=== PATIENT | male | born 1980 | race Caucasian/White ===

== ENCOUNTER 2018-06-04 08:25 | Emergency (ER) | payer OTHER ==
[2018-06-04] MEDS ORDERED: NS 1,000 ML IV ONE (08:44)
--- NOTE | 2018-06-04 08:51 | EDPHY ---
H & P Time Seen by Provider: 06/04/18 08:37 HPI/ROS: HPI Left-sided facial numbness. 37-year-old male by ambulance with family. The patient reports that he woke up uneventfully this morning. He reports that he went downstairs as usual and was getting a cup of coffee. He reports that he had a sensation of a sudden onset head rash and felt lightheaded. This was then followed by a sensation of numbness to the left side of his face including the left forehead, left maxilla and left jaw and the left side of his tongue. He went up to the bed room to tell his this. He states that because of the numbness of the left side of his tongue he was unable to communicate and verbalize affectively. He reports that he laid down on the bed and the symptoms resolved quickly, within about 2 min. He reports that they were then deciding whether not to call the ambulance. He was feeling much better but then a short time later this symptoms started returning. He then called an ambulance and was brought to the emergency department. He reports that the symptoms again resolved. At this time he has no complaints and denies any symptoms or abnormal sensations. His father has a history of a stroke. ROS: Constitutional: No fever, no chills. As above. Eyes: No discharge. No changes in vision. ENT: No sore throat. No nasal congestion or rhinorrhea. Respiratory: No cough. No shortness of breath. Cardiac: No chest pain, no palpitations. Gastrointestinal: No abdominal pain, no vomiting, no diarrhea. Genitourinary: No hematuria. No dysuria or increased frequency with urination. Musculoskeletal: No back pain. No neck pain. No myalgias or arthralgias. Skin: No rashes. Neurological: No headache. As above. Past medical history: No significant past medical history. He is not on any prescription medications. Social history: Here with family and . No alcohol. No IV drugs or street drugs. He does not smoke. Physical Exam: General Appearance: Alert, no distress. This patient is responding to questions appropriately and in full sentences. This patient appears well- hydrated and well-nourished. Eyes: Pupils equal and round no pallor or injection. No lid edema, erythema or injection. No nystagmus. No photophobia. ENT, Mouth: Mucous membranes are moist. The pharyngeal tissues are unremarkable. No edema or swelling. No asymmetry suggestive of abscess. No erythema or exudates. No tongue lacerations or abrasions. Sensory and motor function of the tongue are normal. Respiratory: There are no retractions, lungs are clear to auscultation with good air movement bilaterally. Cardiovascular: Regular rate and rhythm. No murmur. Gastrointestinal: Abdomen is soft and nontender, no masses, bowel sounds normal. No focal tenderness at McBurney's point. No Galloway sign. Neurological: Motor sensory function is grossly intact. Cranial nerves are normal. Cerebellar function is normal. Gait is normal. Skin: Warm and dry, no rashes. Musculoskeletal: Neck is supple and nontender. No pain on flexion of the neck. Extremities are symmetrical. All joints range without pain or impingement. Psychiatric: No agitation. No depression. Database: EKG: EKG time is 8:50 a.m.; EKG shows a narrow complex normal sinus rhythm with a ventricular rate of 64. Probable early repolarization. The CT, QRS, QT intervals are within normal limits. There are no ST-T wave changes indicative of ischemic or injury pattern. No evidence of right heart strain. Interpreted by me. Imaging: MRI brain without contrast: Negative. Results were discussed with staff radiologist Dr. Low Deleon. Carotid Doppler ultrasound: Essentially negative study: No clinically significant stenosis involving the carotid arteries and the vertebral arteries. Results were discussed with staff radiologist Dr. Low Deleon. Procedures: Emergency department course: Triage vital signs reviewed. The differential diagnosis on the patient includes CVA, partial complex seizure, atypical migraine syndrome. IV placed. The patient was placed on a monitor. He was started on IV normal saline with 500 cc to 1 L to be given over the next hour. EKG obtained and reviewed by myself. Blood work will be obtained as well as an MRI of the brain diffusion- weighted without contrast and carotid artery Doppler ultrasounds. This was discussed with the patient and family. He consents. 10:55 a.m., the patient's neurologic exam has remained nonfocal since he has been in the emergency department. He has had no further complaints. Results of blood work and imaging discussed with him and his and family. Neurology paged. 11:05 a.m., spoke with on-call neurologist, Dr. Pj Ledezma. Case discussed in detail with him. He recommends that the patient be discharged, follow-up in his office and be started on aspirin 81 mg daily. This plan was discussed with the patient and family. He feels comfortable going home at this time. Repeat neurologic Assessment is nonfocal. He understands his follow-up. Return to emergency department precautions were reviewed with him. All of his questions were answered. He was discharged in good condition with his and family. Differential Diagnosis: The differential diagnosis on this patient includes but is not limited to CVA, partial complex seizure, atypical migraine syndrome, anxiety reaction, Ruth's palsy. This represents a partial list of diagnoses considered. These considerations are based on history, physical exam, past history, reassessment and diagnostic testing. Smoking Status: Never smoked Constitutional: Initial Vital Signs Temperature (C) 36.8 C 06/04/18 08:27 Heart Rate 64 06/04/18 08:27 Respiratory Rate 16 06/04/18 08:27 Blood Pressure 122/70 H 06/04/18 08:27 O2 Sat (%) 93 06/04/18 08:27 O2 Delivery Mode Room Air Allergies/Adverse Reactions: No Known Allergies Allergy (Unverified 06/04/18 08:31) Home Medications: Medication Instructions Recorded Ibuprofen 06/04/18 Medical Decision Making - Diagnostics Imaging Results: Imaging Impressions Brain MRI 06/04/18 08:45 Impression: Normal MRI of the brain without contrast. Findings and recommendations discussed with Emergency Department physician, Sherman Siddiqui MD at 10:45 a.m., 06/04/2018. Final report concurs with initial preliminary interpretation. Cosigned: Adair Ramires M.D. Carotid Doppler Study 06/04/18 08:46 Impression: 1. No evidence of flow-limiting carotid stenosis. 2. No carotid atherosclerotic disease or stenosis. 3. Bilateral vertebral arteries are patent with antegrade flow. Measurement of carotid stenosis is based on velocity parameters that correlate the residual internal carotid diameter with [place] Symptomatic Carotid Endarterectomy Trial (NASCET) based stenosis levels. Findings and recommendations discussed with Emergency Department physician, Sherman Siddiqui MD at 10:19 hour, 06/04/2018. Final report concurs with initial preliminary interpretation. - Data Points Laboratory Results: Laboratory Results 06/04/18 08:35 06/04/18 08:35 06/04/18 18 08:35 08:35 WBC 5.98 10^3/uL 10^3/uL (3.80-9.50) RBC 5.85 10^6/uL 10^6/uL (4.40-6.38) Hgb 17.3 g/dL g/dL (13.7-17.5) Hct 50.6 % % (40.0-51.0) MCV 86.5 fL fL (81.5-99.8) MCH 29.6 pg pg (27.9-34.1) MCHC 34.2 g/dL g/dL (32.4-36.7) RDW 12.3 % % (11.5-15.2) Plt Count 204 10^3/uL 10^3/uL (150-400) MPV 9.9 fL fL (8.7-11.7) Neut % (Auto) 54.3 % % (39.3-74.2) Lymph % (Auto) 36.0 % % (15.0-45.0) [place] % (Auto) 7.5 % % (4.5-13.0) Eos % (Auto) 1.3 % % (0.6-7.6) Baso % (Auto) 0.7 % % (0.3-1.7) Nucleat RBC Rel Count 0.0 % % (0.0-0.2) Absolute Neuts (auto) 3.25 10^3/uL 10^3/uL (1.70-6.50) Absolute Lymphs (auto) 2.15 10^3/uL 10^3/uL (1.00-3.00) Absolute Monos (auto) 0.45 10^3/uL 10^3/uL (0.30-0.80) Absolute Eos (auto) 0.08 10^3/uL 10^3/uL (0.03-0.40) Absolute Basos (auto) 0.04 10^3/uL 10^3/uL (0.02-0.10) Absolute Nucleated RBC 0.00 10^3/uL 10^3/uL (0-0.01) Immature Gran % 0.2 % % (0.0-1.1) Immature Gran # 0.01 10^3/uL 10^3/uL (0.00-0.10) Sodium 140 mEq/L mEq/L (135-145) Potassium 4.5 mEq/L mEq/L (3.3-5.0) Chloride 104 mEq/L mEq/L (97-110) Carbon Dioxide 25 mEq/l mEq/l (22-31) Anion Gap 11 mEq/L mEq/L (8-16) BUN 20 mg/dL mg/dL (7-23) Creatinine 1.0 mg/dL mg/dL (0.7-1.3) Estimated GFR > 60 Glucose 92 mg/dL mg/dL (70-100) Calcium 9.8 mg/dL mg/dL (8.5-10.4) Medications Given: Discontinued Medications Aspirin (Aspirin) 81 mg PO EDNOW ONE Stop: 06/04/18 11:06 Last Admin: 06/04/18 11:10 Dose: 81 mg Sodium Chloride (Ns) 1,000 mls @ 0 mls/hr IV ONCE ONE; Wide Open PRN Reason: Protocol Stop: 06/04/18 08:45 Last Admin: 06/04/18 08:57 Dose: 1,000 mls Departure - Departure Disposition: Home, Routine, Self-Care Clinical Impression: Left facial numbness Condition: Good Instructions: Paresthesia (ED) Additional Instructions: Read and follow provided instructions. Take 81 mg of chewed aspirin daily. Follow-up with Neurology, Dr. Pj Ledezma or 1 of his partners, in the next few days for re-evaluation. Call his office this morning for appointment time. I spoke with him personally. Return to the emergency department for return of symptoms or other serious concerns. Referrals: Pj Ledezma MD [Medical Doctor] - As per Instructions
[2018-06-04 08:54] LABS: PLATELET COUNT 204 10^3/uL (150-400)
[2018-06-04 10:35] VITALS: BP 110/58
[2018-06-04] MEDS ORDERED: ASPIRIN 81 MG CHEWABLE TAB PO ONE (11:05)
--- NOTE | 2018-06-04 12:18 | CPEKG ---
Test Reason : OPEN Blood Pressure : / mmHG Vent. Rate : 064 BPM Atrial Rate : 062 BPM P-R Int : 174 ms QRS Dur : 100 ms QT Int : 389 ms P-R-T Axes : 000 006 037 degrees QTc Int : [address] elev, probable normal early repol pattern Confirmed by Sherman Siddiqui ([id number]) on 06/04/2018 12:17:54 PM Referred By: Confirmed By:Sherman Siddiqui
== END 2018-06-04 11:19 | disposition home or self-care (01) ==
LOC: EDUNIT#
DX: R20.0 Anesthesia of skin (principal); E86.9 Volume depletion, unspecified

== ENCOUNTER → 2018-06-05 | Outpatient (CLI) | payer OTHER ==
[~2018-06-05] MED LIST: IOPAMIDOL (ISOVUE 370) 100 ML BTL IV ONE
== END ==
LOC: FIMAGING 17:17
PROVIDERS: ATTEND Psychiatry & Neurology Neurology
DX: R20.0 Anesthesia of skin (principal); R47.81 Slurred speech
CPT/HCPCS: Q9967

== ENCOUNTER → 2018-06-12 | Outpatient (CLI) | payer OTHER | LOC: FIMAGING 10:59 | PROVIDERS: ATTEND Psychiatry & Neurology Neurology | DX: R20.0 Anesthesia of skin (principal); G45.9 Transient cerebral ischemic attack, unspecified ==

== ENCOUNTER 2018-07-01 12:07 | Day surgery (SDC) | payer OTHER ==
[2018-07-01] MEDS ORDERED: BENZOCAINE UNIT DOSE SPRAY HURRICAINE MM ONE (12:10)
[2018-07-01] MEDS ORDERED: fentaNYL 100 MCG/2 ML INJ IVP ONE (12:10)
[2018-07-01] MEDS ORDERED: MIDAZOLAM 2 MG/2 ML VIAL IVP ONE (12:10)
[2018-07-01] MEDS ORDERED: NS 500 ML IV ONE (12:10)
[2018-07-01] MEDS ORDERED: ATROPINE SULFATE 1 MG/10 ML SYR ONE (13:27)
--- NOTE | 2018-07-01 13:36 | PDANEPAE ---
ANE History of Present Illness ALLEN for TIA eval ANE Past Medical History - Pulmonary History Hx Oxygen in Use at Home: No Hx Sleep Apnea: No - Endocrine History Hx Diabetes: No - Chronic Pain History Chronic Pain: No (recent low back pain, not chronic) ANE Review of Systems Review of Systems: - Exercise capacity Exercise capacity: >=4 METS ANE Patient History - Allergies Allergies/Adverse Reactions: No Known Allergies Allergy (Unverified 06/04/18 08:31) - Home Medications Home medications: home medication list seen and reviewed Home Medications: Ibuprofen 06/04/18 [Last Taken Unknown] - NPO status NPO Status: no food or drink >8 hours - Anes Hx Anes Hx: no prior problems - Smoking Hx Smoking Status: Never smoked - Alcohol Use Alcohol Use: Rarely - Family Anes Hx Family Anes Hx: none ANE Labs/Vital Signs - Vital Signs Height: 185.42 cm Weight: 90.718 kg ANE Physical Exam - Airway Neck exam: FROM Mallampati Score: Class 1 Mouth exam: normal dental/mouth exam - Pulmonary Pulmonary: no respiratory distress - Cardiovascular Cardiovascular: regular rate and rhythym - ASA Status ASA Status: I ANE Anesthesia Plan Anesthesia Plan: GA with mask Total IV Anesthesia: Yes
[2018-07-01] MEDS ORDERED: PROPOFOL 200 MG/20 ML VIAL ONE (13:39)
[2018-07-01] MEDS ORDERED: LIDOCAINE 2% 100 MG/5 ML SYR ONE (13:39)
[2018-07-01] MEDS ORDERED: SUCCINYLCHOLINE CHLORIDE 200 MG/10 ML SYR IVP ONE (13:39)
--- NOTE | 2018-07-01 14:00 | PDHPUP ---
History & Physical Update H&P update statement: This history and physical update is based on an assessment of the patient which was completed after admission or registration (within 24 hours), but prior to the surgery/procedure. H&P update: H&P reviewed & patient examined, no change in patient's condition since H&P completed (Reviewed Dr. Haji's clinic note dated 06/12/2018)
[2018-07-01] MEDS ORDERED: NALOXONE HCL 0.4 MG/ML INJ IVP PRN (14:37)
--- NOTE | 2018-07-01 14:38 | POSTANESTH ---
Post Anesthetic Evaluation Cardiovascular Status: Normal, Stable Respiratory Status: Normal, Stable Level of Consciousness/Mental Status: Can Participate in Eval Pain Control: Adequate, Prn Tx Ordered Nausea/Vomiting Control: Adequate, Prn Tx Ordered Complications Possibly Related to Anesthesia: None Noted
--- NOTE | 2018-07-01 16:28 | ECHO ---
[email or web address] [address] [address] Main: [phone] Fax: Transesophageal Echocardiography Name: NARINDER HIGHTOWER MR#: [id number] Study Date: 07/01/2018 Study Time: 01:44 PM Date of : 1980 Age: 37 year(s) Height: ( ) Weight: ( ) BSA: Gender: Male Examination: ALLEN Indication: tia Image Quality: Contrast: Requested by: Kemar Gould Heart Rate: Rhythm: BP: / Procedure Staff Cop Winder: Sirisha Ji [facility] Reading Physician: Johana Petit MD Requesting Provider: Kevin Haji ALLEN Exam Details Conclusions: Normal size left ventricle. Normal global systolic LV function. Normal size right ventricle. Normal RV function. The left atrium is normal in size. No thrombus is noted in the left atrium. Left to right color flow noted across the interatrial septum consistent with small secundum atrial defect. QP/QS .8 No VLADIMIR thrombus. Mild mitral valve regurgitation is present. Measurements: Chambers Valvular Assessment AV/MV Valvular Assessment TV/PV Normal Normal Normal Name Value Range Name Value Range Name Value Range LVOTd 2.3 cm 2.3 cm mm Qp/Qs: 0.80 ( - ) Additional Measurements: Chambers Name Value RVOT1: 2.3 cm RVOT SV D: 35 ml RVOT VTI: 8.54 cm Patient: NARINDER HIGHTOWER Study Date: 07/01/2018 Page 1 of 2 01:44 PM Findings: Left Ventricle: Normal size left ventricle. Normal global systolic LV function. Right Ventricle: Normal size right ventricle. Normal RV function. Left Atrium: The left atrium is normal in size. No thrombus is noted in the left atrium. Left to right color flow noted across the interatrial septum consistent with small secundum atrial defect. QP/QS .8 Left Atrial Appendage: No thrombus in left appendage. No VLADIMIR thrombus. Right Atrium: The right atrium is normal in size. Mitral Valve: The mitral valve is normal in appearance and function. Mild mitral valve regurgitation is present. Aortic Valve: The aortic valve is normal in appearance and function. The aortic valve is tri-leaflet. There is no aortic valve regurgitation. Tricuspid Valve: The tricuspid valve is normal in appearance and function. Trivial tricuspid valve regurgitation. Pulmonic Valve: The pulmonic valve is normal in appearance. Trivial pulmonic valve regurgitation. Aorta: Normal size. Pericardium: No pericardial effusion. l1n (No Signature Object) Patient: NARINDER HIGHTOWER Study Date: 07/01/2018 Page 2 of 2 01:44 PM [id number]
== END 2018-07-01 17:41 | disposition home or self-care (01) ==
LOC: FCATH 12:07
PROVIDERS: ATTEND Internal Medicine Cardiovascular Disease
PROC: B246ZZ4 Ultrasonography of Right and Left Heart, Transesophageal (ICD-10-PCS; principal; 2018-07-01)
DX: Q21.1 Atrial septal defect (principal); Z83.2 Family history of diseases of the blood and blood-forming organs and certain disorders involving the immune mechanism; Z86.73 Personal history of transient ischemic attack (TIA), and cerebral infarction without residual deficits
CPT/HCPCS: J0330; J0461; J2001; J2704

== ENCOUNTER 2018-08-06 05:59 | Observation (INO) | payer OTHER ==
[2018-08-06] MEDS ORDERED: diphenhydrAMINE 25 MG CAP PO ONE (06:08)
[2018-08-06] MEDS ORDERED: DIAZEPAM 5 MG TAB PO ONE (06:08)
[2018-08-06] MEDS ORDERED: ASPIRIN EC 325 MG TAB PO ONE (06:08)
[2018-08-06] MEDS ORDERED: NS 1,000 ML IV ONE (06:08)
[2018-08-06] MEDS ORDERED: FAMOTIDINE 20 MG TAB PO ONE (06:08)
--- NOTE | 2018-08-06 06:43 | PDHPUP ---
History & Physical Update H&P update statement: This history and physical update is based on an assessment of the patient which was completed after admission or registration (within 24 hours), but prior to the surgery/procedure. H&P update: H&P reviewed & patient examined, no change in patient's condition since H&P completed
--- NOTE | 2018-08-06 06:43 | PDPROPOC ---
Sedation Plan of Care Sedation Plan of Care: mental status noted, patient educated of risks, benefits , alternatives, patient can tolerate sedation ASA Classification: ASA 2 Planned drugs: other Mallampati Score: Class 2 Mallampati Reference Image: Patient passed 3-3-2 rule?: Yes
[2018-08-06] MEDS ORDERED: ceFAZolin 2 GM/DEXTROSE 100 ML IV ONE (07:00)
--- NOTE | 2018-08-06 07:12 | PDANEPAE ---
ANE History of Present Illness ASD s/f ASD closure ANE Past Medical History - Pulmonary History Hx Oxygen in Use at Home: No Hx Sleep Apnea: No - Endocrine History Hx Diabetes: No - Neurological & Psychiatric Hx Hx Neurological and Psychiatric Disorders: Yes Neurological / Psychiatric History Comment: TIA from ASD - Chronic Pain History Chronic Pain: No (recent low back pain, not chronic) ANE Review of Systems Review of Systems: - Exercise capacity Exercise capacity: >=4 METS ANE Patient History - Allergies Allergies/Adverse Reactions: No Known Allergies Allergy (Unverified 06/04/18 08:31) - Home Medications Home medications: home medication list seen and reviewed Home Medications: Aspirin [Aspirin 81mg (*)] 81 mg PO DAILY 07/31/18 [Last Taken Unknown] Herbals/Supplements -Info Only 1 ea PO DAILY 07/31/18 [Last Taken Unknown] Ibuprofen [Motrin (*)] 400 mg PO DAILY PRN 07/31/18 [Last Taken Unknown] Multivitamins [Multivitamin (*)] 1 each PO DAILY 07/31/18 [Last Taken Unknown] Howard-3 Fatty Acids [Fish Oil 1000 mg (*)] 1,000 mg PO DAILY 07/31/18 [Last Taken Unknown] - NPO status NPO Status: no food or drink >8 hours - Anes Hx Anes Hx: no prior problems - Smoking Hx Smoking Status: Never smoked - Alcohol Use Alcohol Use: Occasionally - Family Anes Hx Family Anes Hx: none ANE Labs/Vital Signs - Labs - CBC WBC: 08/05/18 okay - Labs - BMP Sodium: 08/05/18 okay - Vital Signs Height: 185.42 cm Weight: 97.522 kg ANE Physical Exam - Airway Neck exam: FROM Mallampati Score: Class 2 Mouth exam: normal dental/mouth exam - Pulmonary Pulmonary: no respiratory distress - Cardiovascular Cardiovascular: regular rate and rhythym - ASA Status ASA Status: II ANE Anesthesia Plan Anesthesia Plan: general endotracheal anesthesia
[2018-08-06] MEDS ORDERED: PROPOFOL/EMULSION 500 MG/50 ML BOTTLE IV ONE (07:14)
[2018-08-06] MEDS ORDERED: fentaNYL 100 MCG/2 ML INJ ONE (07:14)
[2018-08-06] MEDS ORDERED: REMIFENTANIL HCL 1 MG VIAL ONE (07:14)
[2018-08-06] MEDS ORDERED: ONDANSETRON 4 MG/2 ML VIAL ONE (07:14)
[2018-08-06] MEDS ORDERED: DEXAMETHASONE 4 MG/ML VIAL ONE ×2 (07:14)
[2018-08-06] MEDS ORDERED: LIDOCAINE 2% 100 MG/5 ML SYR ONE (07:14)
[2018-08-06] MEDS ORDERED: LIDOCAINE HCL 160 MG/4 ML LTA KIT TP ONE (07:17)
[2018-08-06] MEDS ORDERED: IOPAMIDOL (ISOVUE-370) 150 ML BTL IV ONE (07:29)
[2018-08-06] MEDS ORDERED: HEPARIN 10,000 UNIT/10 ML MDV (1,000 UNIT/ML) ONE ×2 (07:40→07:54)
[2018-08-06] MEDS ORDERED: ONDANSETRON 4 MG/2 ML VIAL IVP PRN (08:38)
[2018-08-06] MEDS ORDERED: LORazepam 2 MG/ML INJ IVP PRN (08:38)
[2018-08-06] MEDS ORDERED: NITROGLYCERIN 0.4 MG BTL SL PRN (08:38)
[2018-08-06] MEDS ORDERED: OXYCODONE/APAP 5/325 TAB PO PRN (08:38)
[2018-08-06] MEDS ORDERED: ATROPINE SULFATE 1 MG/10 ML SYR IVP PRN (08:38)
[2018-08-06] MEDS ORDERED: TEMAZEPAM 15 MG CAP PO PRN (08:38)
[2018-08-06] MEDS ORDERED: HYDROCODONE/APAP 5/325 TAB PO PRN (08:38)
--- NOTE | 2018-08-06 09:26 | CPIP ---
DATE OF PROCEDURE: 08/06/2018 INDICATIONS FOR PROCEDURE: Cryptogenic stroke. PROCEDURE: 1. 9-Mongolian sheath right common vein. 2. Repair of patent foramen ovale with a 25 mm Amplatzer device. HISTORY: Briefly, this is a 37-year-old male with history of cryptogenic stroke with known PFO on T EE. Patient had no evidence of atrial fibrillation on a 3 day monitoring as an outpatient. Given thes e findings, the patient consented for PFO closure. DESCRIPTION OF PROCEDURE: After informed consent, the patient was brought to [facility] where the patient w as selectively intubated. ALLEN performed by Dr. Johana Petit. The patient was administered 2 g of Ancef IV prior to the case. An 8-Mongolian sheath placed in the right common vein, which was upsized to a 9-Mongolian sheath. PFO was s uccessfully crossed with a multipurpose catheter and wire after a total of 12,000 heparin was given. PFO was noted on ALLEN with spontaneous left to right color shunting. PFO was closed successfully with a 25 mm Amplatzer device. Post-deployment, there was a bubble study performed, which showed no transm ission of bubbles from the right to left or left to right. Sheath was pulled back. Closed with a purs estring suture. The patient tolerated the procedure well with no complications. IMPRESSION: Successful closure of patent foramen ovale with 25 mm device physical closure of PFO 25 mm PFO device. PLAN: The patient will have his sutures discontinued in 24 hours. The patient will be admitted to in patient status, discharge within 24 hours if clinically stable. /[id number]/MODL
--- NOTE | 2018-08-06 09:37 | ECHO ---
[email or web address] [address] [address] Main: [phone] Fax: Transesophageal Echocardiography Name: NARINDER HIGHTOWER MR#: [id number] Study Date: 08/06/2018 Study Time: 07:36 AM Date of : 1980 Age: 37 year(s) Height: ( ) Weight: ( ) BSA: Gender: Male Examination: ALLEN Indication: ASD Closure Image Quality: Adequate Contrast: Requested by: Kevin Haji Heart Rate: Rhythm: BP: / Procedure Staff Social Science Teacher: Ashwini Nava RDCS Reading Physician: Johana Petit MD Requesting Provider: Kevin Haji ALLEN Exam Details Conclusions: Normal size left ventricle. Normal global systolic LV function. Prior to ASD closure procedure, the patient has a small secundum ASD. The QpQs from the prior ALLEN was .8. Post ASD device deployment, a negative bubble study was performed. There is no visible residual shunting. The device is well seated. . Mild mitral valve regurgitation is present. The aortic valve is tri-leaflet. There is no significant aortic valve regurgitation. Mild tricuspid regurgitation is present. The pulmonic valve is normal in appearance and function. Normal. No pericardial effusion. Measurements: Chambers Valvular Assessment AV/MV Valvular Assessment TV/PV Normal Normal Normal Name Value Range Name Value Range Name Value Range Additional Measurements: Findings: Left Ventricle: Normal size left ventricle. Normal global systolic LV function. No regional wall motion abnormality. Patient: NARINDER HIGHTOWER Study Date: 08/06/2018 Page 1 of 2 07:36 AM Left Atrium: Prior to ASD closure procedure, the patient has a small secundum ASD. The QpQs from the prior ALLEN was .8. Post ASD device deployment, a negative bubble study was performed. There is no visible residual shunting. The device is well seated. . Mitral Valve: The mitral valve is normal in appearance and function. Mild mitral valve regurgitation is present. No mitral stenosis is present. Aortic Valve: The aortic valve is tri-leaflet. There is no significant aortic valve regurgitation. Tricuspid Valve: The tricuspid valve is normal in appearance and function. Mild tricuspid regurgitation is present. Pulmonic Valve: The pulmonic valve is normal in appearance and function. Aorta: Normal. Pericardium: No pericardial effusion. l1n (No Signature Object) Patient: NARINDER HIGHTOWER Study Date: 08/06/2018 Page 2 of 2 07:36 AM [id number]
[2018-08-06] MEDS ORDERED: ACETAMINOPHEN 325 MG TAB PO PRN (13:16)
[2018-08-06] MEDS: ACETAMINOPHEN 325 MG TAB PO PRN ×2 (13:27→17:39)
--- NOTE | 2018-08-06 13:29 | PDMN ---
Medical Necessity Medical necessity: Pt meets inpt criteria per MD order and [facility] S-282, Cardiac Septal Defect: Atrial, Transcatheter Closure. 37 y/o w/hx cryptogenic stroke and known PFO on ALLEN, admitted for closure of patent foramen ovale, PCU post-op monitoring/care.
[2018-08-07 04:15] LABS: PLATELET COUNT 176 10^3/uL (150-400)
[2018-08-07] MEDS: ACETAMINOPHEN 325 MG TAB PO PRN (04:18)
--- NOTE | 2018-08-07 06:51 | PDCARPN ---
Cardiology Progress Note Chief Complaint: s/p PFO closure Assessment/Plan: Assessment: s/p PFO closure Plan: 08/07/18 06:50 doing well d/c suture in groin d/c home f/u next week Subjective: doing well Reviewed/Discussed With: multidisciplinary team Time Spent with Patient: greater than 25 minutes Time Spent with Patient: Greater than 25 minutes spent on this patients care, greater than 50% of time spent counseling, educating, and coordinating care regarding the above mentioned plan. Objective: Vital Signs (8 Hrs) Temp Pulse Resp BP Pulse Ox 08/07/18 05:55 42 L 08/07/18 04:00 36.7 C 58 L 16 120/59 L 94 08/06/18 23:42 113/74 08/06/18 22:59 36.6 C 66 13 97/55 L 94 Intake/Output (24 Hrs) 08/06/18 08/07/18 08/08/18 05:59 05:59 05:59 Intake Total 1450 Balance 1450 Intake: Oral (ml) 1450 Other: Weight 97.522 kg Number of Voids Toilet 2 Result Diagrams: 08/07/18 03:57 08/07/18 03:57 - Physical Exam Constitutional: healthy appearing Eyes: PERRL Ears, Nose, Mouth, Throat: moist mucous membranes Cardiovascular: regular rate and rhythm Peripheral Pulses: 1+: femoral (R), femoral (L) Respiratory: clear to auscultate bilat Gastrointestinal: normoactive bowel sounds Genitourinary: no suprapubic tenderness Skin: no rashes Musculoskeletal: no muscular tenderness Neurologic: AAOx3 Psychiatric: cooperative ICD10 Worksheet Patient Problems: Problems Problem Status Onset Cryptogenic stroke Acute - ICD10 Problem Qualifiers (1) Cryptogenic stroke
--- NOTE | 2018-08-07 07:06 | GDS ---
DISCHARGE DIAGNOSIS: Patent foramen ovale closure. HOSPITAL COURSE: Briefly, this is a 37-year-old male with history of cryptogenic stroke with known P FO. The patient had a 30 day monitor, which showed no atrial fibrillation. Neurology has evaluated the patient and determined the patient to be a suitable candidate for PFO closure. The patient under went successful PFO closure on 08/06/2018 with Amplatzer 25 mm device. Postprocedure, the patient rucker s done very well overnight. He will have his sutures in his groin removed this morning. He will be discharged with baby aspirin and Plavix. He will follow up in the office in 1 week's time. /[id number]/MODL
[2018-08-07 07:15] VITALS: BP 115/66
[2018-08-07] MEDS ORDERED: CLOPIDOGREL BISULFATE 75 MG TAB PO SCH (09:00)
[2018-08-07] MEDS ORDERED: ASPIRIN 81 MG CHEWABLE TAB PO SCH (09:00)
[2018-08-08] MEDS ORDERED: OMEGA-3 FATTY ACIDS 1,000 MG CAP PO SCH (09:00)
[2018-08-08] MEDS ORDERED: Herbals/Supplements -Info Only PO SCH (09:00)
[2018-08-08] MEDS ORDERED: MULTIVITAMINS 1 EACH TAB PO SCH (09:00)
--- NOTE | 2018-08-09 14:51 | CPEKG ---
Test Reason : OPEN Blood Pressure : / mmHG Vent. Rate : 068 BPM Atrial Rate : 068 BPM P-R Int : 184 ms QRS Dur : 103 ms QT Int : 412 ms P-R-T Axes : -17 -13 025 degrees QTc Int : [address] elev, probable normal early repol pattern Confirmed by Gabriele Kendrick ([id number]) on 08/09/2018 2:51:06 PM Referred By: Confirmed By:Gabriele Kendrick
--- NOTE | 2018-08-09 14:54 | CPEKG ---
Test Reason : OPEN Blood Pressure : / mmHG Vent. Rate : 063 BPM Atrial Rate : 064 BPM P-R Int : 179 ms QRS Dur : 106 ms QT Int : 400 ms P-R-T Axes : 014 011 035 degrees QTc Int : [address] elev, probable normal early repol pattern Confirmed by Gabriele Kendrick ([id number]) on 08/09/2018 2:53:27 PM Referred By: Confirmed By:Gabriele Kendrick
== END 2018-08-07 11:23 | disposition home or self-care (01) ==
LOC: FCATH 05:59 → INTOOBSV 08:38 → F2W 08:38
PROVIDERS: ADMIT Internal Medicine Cardiovascular Disease; ATTEND Internal Medicine Cardiovascular Disease
PROC: 02U53JZ Supplement Atrial Septum with Synthetic Substitute, Percutaneous Approach (ICD-10-PCS; principal; 2018-08-06)
DX: I63.9 Cerebral infarction, unspecified (principal)
CPT/HCPCS: 93005; 93355; 93580; G0378; C1817; J0690; J1100; J1644; J2001; J2405; J2704; J3010; Q9967